=== PATIENT | female | born 1990 | race Caucasian/White ===

== ENCOUNTER 2021-02-25 14:11 | Emergency (ER) | payer OTHER, SELFPAY ==
[2021-02-25 14:23] VITALS: BP 141/80; PULSE 82; RESP 16; TEMP 36.8; O2SAT 99
--- NOTE | 2021-02-25 14:43 | DI.CT.S_ITS ---
PROCEDURE: CT HEAD/BRAIN WO CON INDICATIONS: dizzy, alt sensation to left side, visual disturbances. TECHNIQUE: Noncontrast 4.5 mm thick angled axial sections acquired from the foramen magnum to the vertex, with coronal and sagittal reformats. For radiation dose reduction, the following was used: automated exposure control, adjustment of mA and/or kV according to patient size. COMPARISON: None. FINDINGS: Image quality: Excellent. CSF spaces: Basal cisterns are patent. No extra-axial fluid collections. Ventricles are normal in size and shape. Brain: No midline shift. No intracranial masses or hemorrhage. Mann-white matter interface is normal. Skull and face: Calvarium and visualized facial bones are intact, without suspicious lesions. Sinuses: Visualized sinuses and mastoids are clear. IMPRESSION: Normal for age, source of current symptoms is not seen. Dictated by: Emigdio Reina M.D. on 02/25/2021 at 15:05 Approved by: Emigdio Reina M.D. on 02/25/2021 at 15:06
[2021-02-25 15:13] LABS: Add Manual Diff / Slide Review NO; Basophils Absolute Auto 0 /uL (0-100); Basophils Percent Auto 0.5 % (0-2); Eosinophils Absolute Auto 100 /uL (0-450); Eosinophils Percent Auto 2.4 % (2-4); Hematocrit 33.8 % (36-46); Hemoglobin 11.2 g/dL (12.0-16.0); Lymphocytes Absolute Auto 1600 /uL (1100-4500); Lymphocytes Percent Auto 30.7 % (25-40); Mean Corpuscular HGB Conc 33.2 % (30-36); Mean Corpuscular Volume 78.1 fL (80-100); Monocytes Absolute Auto 400 /uL (0-900); Monocytes Percent Auto 7.1 % (3-14); Neutrophils Absolute Auto 3000 /uL (1500-7000); Neutrophils Percent Auto 59.3 % (50-75); Platelet Count 351 X10^3/uL (150-400); Red Blood Cell Count 4.33 X10^6/uL (4.0-5.2); Red Cell Distribution Width 19.5 % (11.6-14.8); White Blood Cell Count 5.1 X10^3/uL (4.5-11.0)
[2021-02-25 15:18] LABS: INR 1.1 (0.9-1.3); Prothrombin Time 11.9 SECONDS (10.1-12.7)
[2021-02-25 15:21] LABS: PTT Partial Thromboplastin Tim 34 SECONDS (26.4-36.2)
[2021-02-25 15:23] LABS: Alanine Aminotransferase 28 IU/L (<35); Albumin 4.5 g/dL (3.5-5.0); Albumin Globulin Ratio 1.8 (1.0-2.8); Alkaline Phosphatase 51 U/L (38-126); Aspartate Aminotransferase 28 IU/L (14-36); BUN Creatinine Ratio 20.8 (6-22); Bilirubin Total 0.1 mg/dL (0.2-1.3); Blood Urea Nitrogen 15 mg/dL (7-17); Calcium 9.2 mg/dL (8.4-10.2); Carbon Dioxide 26 mmol/L (22-32); Chloride 105 mmol/L (98-107); Estimated Glomerular Filt Rate > 60.0 mL/min (>60); Globulin 2.5 g/dL (1.7-4.1); Glucose 96 mg/dL (70-100); HEMOLYSIS < 15 (0-50)
--- NOTE | 2021-02-25 15:34 | DI.MRI.S_ITS ---
PROCEDURE: MR HEAD/BRAIN WO/W CON INDICATIONS: lower ext numbness. TECHNIQUE: Noncontrast sagittal and axial FLAIR, axial and coronal T2 fast spin echo, axial VIBE, axial gradient echo, axial diffusion and ADC through the brain. After the administration of contrast, axial and coronal VIBE with fat saturation through the brain. COMPARISON: None. FINDINGS: Image quality: Excellent. CSF spaces: Normal ventricular caliber and position. The basilar cisterns are patent. No abnormal extra-axial fluid collection. Brain: There is no brain parenchymal FLAIR signal abnormality. No abnormal intracranial enhancement or susceptibility. There is no acute intracranial hemorrhage demonstrated by MR. No findings of mass effect or midline shift. There is no restricted diffusion to indicate recent ischemia. The major intracranial vascular flow-related signal voids are maintained. Midline structures are normal in configuration. Skull and face: Calvarial marrow signal is normal. Orbits appear normal. Sinuses: Sinuses and mastoids are clear. IMPRESSION: Normal MRI of the brain with and without IV contrast. No findings of demyelinating disorder or intracranial mass. Approved by: Roldan Malave M.D. on 02/25/2021 at 16:59 PATIENT NAME: HEATH REINA : 1990 EXAM DATE: 02/25/2021 15:38 ORD. : MELANIA RICKS D.O. CC: MODALITY: MR PATIENT TYPE: ER CONTRAST MEDIA: [facility]CC [place] STATION ID: [id number] FLUORO TIME: Diagnostic Imaging [address] [place] [address] PHONE: [phone] PATIENT NAME: HEATH REINA : 1990 EXAM DATE: 02/25/2021 15:38 ORD. : MELANIA RICKS D.O. CC: MODALITY: MR PATIENT TYPE: ER CONTRAST MEDIA: [facility] [place] STATION ID: [id number] FLUORO TIME:
[2021-02-25 15:41] LABS: Lipase 117 U/L (23-300); Potassium 3.7 mmol/L (3.4-5.1); Sodium 140 mmol/L (137-145)
--- NOTE | 2021-02-25 15:44 | ED_ITS ---
HPI - Neuro Symptoms/Deficit General Chief Complaint: Neuro Symptoms/Deficit Stated Complaint: Dizziness, Tingling/Numbness on Left Leg and Shoul Time Seen by Provider: 02/25/21 15:00 Source: patient Mode of arrival: Wheelchair Limitations: no limitations History of Present Illness HPI Narrative: Female nonsmoker with noncontributory medical history presents with various evolving neurologic symptoms over the past few weeks. She delivered stillborn child in November. Patient has had numbness and tingling on portions of her left shoulder and arm, left hip, left leg as well as dizziness and occasional vision change. She denies any pain nor any trauma. She has no chest pain or shortness of breath. She denies any fever or shaking chills. She is otherwise well and free of complaint. She was initially seen at the walk-in clinic and brought here for the symptoms which have been evolving over the past week. Onset (ago): day(s) Location: left arm and left leg History of same: Yes Severity: moderate Quality: tingling Relieving factors: none Exacerbating factors: none Context: gradual onset On Anticoagulants: No Associated symptoms: vertigo Treatments Prior to Arrival: none Related Data Allergies Allergy/AdvReac Type Severity Reaction Status Date / Time doxycycline Allergy Unknown Verified 02/25/21 14:29 Sulfa (Sulfonamide Allergy Unknown Verified 02/25/21 14:29 Antibiotics) Review of Systems Constitutional Constitutional: Denies chills, Denies fatigue, Denies fever(s), Denies frequent falls, Denies lethargy and Denies weakness Eyes Eyes: Denies change in vision, Denies eye discharge, Denies irritation and Denies loss of vision ENT Ears, Nose, Mouth, and Throat: Denies change in voice, Reports dizziness, Denies neck pain, Denies sore throat and Denies throat swelling Cardiovascular Cardiovascular: Denies chest pain, Denies irregular heart rhythm, Denies lightheadedness, Denies palpitations, Denies dyspnea, Denies dyspnea on exertion and Denies orthopnea Respiratory Respiratory: Denies cough, Denies dyspnea, Denies dyspnea on exertion and Denies wheezing Gastrointestinal Gastrointestinal: Denies abdominal pain, Denies change in bowel habits, Denies diarrhea, Denies nausea and Denies vomiting Musculoskeletal Musculoskeletal: Denies neck pain and Reports numbness Integumentary/Breasts Skin/Breast: Denies pruritus, Denies erythema, Denies rash and Denies wounds Neurologic Neurologic: Denies behavioral changes, Denies confusion, Reports dizziness, Denies frequent falls, Denies loss of vision, Reports numbness and Denies weakness Psychiatric Psychiatric: Denies anxiety, Denies behavioral changes, Denies confusion, Denies depression, Denies homicidal ideation and Denies suicidal ideation Endocrine Endocrine: Denies fatigue, Denies flushing and Denies palpitations Hematologic/Lymphatic Hematologic/Lymphatic: Denies easy bruising On Anticoagulants: No Allergic/Immunologic Allergic/Immunologic: Denies urticaria, Denies throat swelling and Denies wheezing Patient History Social History Smoking Status: Never smoker Smoking Status: Never smoker alcohol intake frequency: 0-2 drinks per day Substance Use Type: does not use Exam Narrative Exam Narrative: GENERAL: [31] year old patient appears stated age. Well- nourished, well-developed patient, in mild distress. HEAD: Atraumatic. Normocephalic. EYES: Pupils equal round and reactive. Extraocular motions intact. No scleral icterus. No injection or drainage. ENT: Nose without bleeding, purulent drainage. Throat without erythema, tonsillar hypertrophy or exudate. Airway patent. NECK: Trachea midline. Non tender CARDIOVASCULAR: Regular rate and rhythm without murmurs, gallops, or rubs. RESPIRATORY: Clear to auscultation. Breath sounds equal bilaterally. No wheezes, rales, or rhonchi. GASTROINTESTINAL: Abdomen soft, non-tender, nondistended. EXTREMITIES: No edema or joint tenderness. BACK: Nontender without deformity or crepitance. No flank tenderness. NEURO: AOx3. SKIN: No rash or erythema of visible areas NIH Stroke Scale 1a. LOC: Patient is alert and keenly responsive (0) 1b. LOC Questions: Patient answers both LOC questions accurately (0) 1c. LOC Commands: Patient performs both tasks correctly (0) 2. Best Gaze: Normal (0) 3. Visual: No visual loss (0) 4. Facial palsy: Normal symmetrical movements (0) 5. Motor arm: No drift (0) 6. Motor leg: No drift (0) 7. Limb ataxia: Absent (0) 8. Sensory: Normal (1) 9. Best language: No aphasia; normal (0) 10. Dysarthria: Normal (0) 11. Extinction and inattention: No abnormality (0) NIHSS: 1 Initial Vital Signs Initial Vital Signs: Vital Signs Temperature 98.2 F 02/25/21 14:23 Pulse Rate 82 02/25/21 14:23 Respiratory Rate 16 02/25/21 14:23 Blood Pressure 141/80 H 02/25/21 14:23 Pulse Oximetry 99 02/25/21 14:23 Course Orders Ordered: ED Orders 02/25/21 14:43 CT head/brain wo con Stat EKG-12 Lead Stat 02/25/21 14:55 Complete Blood Count AUTO DIFF Stat Comprehensive Metabolic Panel Stat Lipase Stat Magnesium Stat Partial Thromboplastin Time Stat Prothrombin Time INR Stat TSH w/ Reflex to FT4 Stat 02/25/21 15:34 MR head/brain wo/w con Stat 02/25/21 16:13 MR cervical spine wo/w con Stat Consultations Consultation #1: Upon receipt of very reassuring imaging I did consult with tele stroke to discuss other possible an alternative diagnoses. After lengthy discussion regarding the patient's history and physical as well as multiple imaging the only suggestion or request was the potential of a CT or MR with venous phase as the gold standard to rule out cavernous sinus thrombosis. Otherwise evaluation is thorough and patient may be discharged with follow-up Consultation #2: After the above conversation I contacted Radiology on-call to review the imaging who states with certainty that there is very sufficient imaging to rule out cavernous venous thrombosis. Vital Signs Vital signs: Vital Signs - 8 hr 02/25/21 14:23 Temperature 98.2 F Pulse Rate 82 Respiratory Rate 16 Blood Pressure 141/80 H Pulse Oximetry 99 MDM - Neuro Symptoms/Deficit Lab Data Result diagrams: 02/25/21 14:55 02/25/21 14:55 Labs: Lab Results 02/25/21 02/25/21 02/25/21 Range/Units 14:55 14:55 14:55 WBC 5.1 (4.5-11.0) X10^3/uL RBC 4.33 (4.0-5.2) X10^6/uL Hgb 11.2 L (12.0-16.0) g/dL Hct 33.8 L (36-46) % MCV 78.1 L (80-100) fL MCH 26.0 (26-34) PG MCHC 33.2 (30-36) % RDW 19.5 H (11.6-14.8) % Plt Count 351 (150-400) X10^3/uL Neut % (Auto) 59.3 (50-75) % Lymph % (Auto) 30.7 (25-40) % [place] % (Auto) 7.1 (3-14) % Eos % (Auto) 2.4 (2-4) % Baso % (Auto) 0.5 (0-2) % Neut # (Auto) 3000 (7786-1735) /uL Lymph # (Auto) 1600 (4618-6263) /uL [place] # (Auto) 400 (0-900) /uL Eos # (Auto) 100 (0-450) /uL Baso # (Auto) 0 (0-100) /uL PT 11.9 (10.1-12.7) SECONDS INR 1.1 (0.9-1.3) APTT 34 (26.4-36.2) SECONDS Sodium 140 (137-145) mmol/L Potassium 3.7 (3.4-5.1) mmol/L Chloride 105 (98-107) mmol/L Carbon Dioxide 26 (22-32) mmol/L BUN 15 (7-17) mg/dL Creatinine 0.72 (0.52-1.04) mg/dL Estimated GFR > 60.0 (>60) mL/min BUN/Creatinine Ratio 20.8 (6-22) Glucose 96 (70-100) mg/dL Calcium 9.2 (8.4-10.2) mg/dL Magnesium 2.0 (1.6-2.3) mg/dL Total Bilirubin 0.1 L (0.2-1.3) mg/dL AST 28 (14-36) IU/L ALT 28 (<35) IU/L Alkaline Phosphatase 51 (38-126) U/L Total Protein 7.0 (6.3-8.2) g/dL Albumin 4.5 (3.5-5.0) g/dL Globulin 2.5 (1.7-4.1) g/dL Albumin/Globulin Ratio 1.8 (1.0-2.8) Lipase 117 (23-300) U/L TSH (0.47-4.68) uIU/mL 05/28/21 Range/Units 14:55 WBC (4.5-11.0) X10^3/uL RBC (4.0-5.2) X10^6/uL Hgb (12.0-16.0) g/dL Hct (36-46) % MCV (80-100) fL MCH (26-34) PG MCHC (30-36) % RDW (11.6-14.8) % Plt Count (150-400) X10^3/uL Neut % (Auto) (50-75) % Lymph % (Auto) (25-40) % [place] % (Auto) (3-14) % Eos % (Auto) (2-4) % Baso % (Auto) (0-2) % Neut # (Auto) (6094-5887) /uL Lymph # (Auto) (8295-7306) /uL [place] # (Auto) (0-900) /uL Eos # (Auto) (0-450) /uL Baso # (Auto) (0-100) /uL PT (10.1-12.7) SECONDS INR (0.9-1.3) APTT (26.4-36.2) SECONDS Sodium (137-145) mmol/L Potassium (3.4-5.1) mmol/L Chloride (98-107) mmol/L Carbon Dioxide (22-32) mmol/L BUN (7-17) mg/dL Creatinine (0.52-1.04) mg/dL Estimated GFR (>60) mL/min BUN/Creatinine Ratio (6-22) Glucose (70-100) mg/dL Calcium (8.4-10.2) mg/dL Magnesium (1.6-2.3) mg/dL Total Bilirubin (0.2-1.3) mg/dL AST (14-36) IU/L ALT (<35) IU/L Alkaline Phosphatase (38-126) U/L Total Protein (6.3-8.2) g/dL Albumin (3.5-5.0) g/dL Globulin (1.7-4.1) g/dL Albumin/Globulin Ratio (1.0-2.8) Lipase (23-300) U/L TSH 2.24 (0.47-4.68) uIU/mL Imaging Data CT scan - head: Radiologist's Impression: [address] [place] [id number] Scan ReportSigned Patient: Clare Costello LMR#: [id number]: 1990Acct:[id number]/Sex: 31 / FDate of Service: 02/25/21Loc: EDAccession Number: [id number] Procedure: CT head/brain wo con Ordering Provider: Serenity Hernandez D.O. PROCEDURE: CT HEAD/BRAIN WO CON INDICATIONS: dizzy, alt sensation to left side, visual disturbances. TECHNIQUE: Noncontrast 4.5 mm thick angled axial sections acquired from the foramen magnum to the vertex, with coronal and sagittal reformats. For radiation dose reduction, the following was used: automated exposure control, adjustment of mA and/or kV according to patient size. COMPARISON: None. FINDINGS: Image quality: Excellent. CSF spaces: Basal cisterns are patent. No extra-axial fluid collections. Ventricles are normal in size and shape. Brain: No midline shift. No intracranial masses or hemorrhage. Mann-white matter interface is normal. Skull and face: Calvarium and visualized facial bones are intact, without suspicious lesions. Sinuses: Visualized sinuses and mastoids are clear. IMPRESSION: Normal for age, source of current symptoms is not seen. Dictated by: Emigdio Reina M.D. on 02/25/2021 at 15:05 Approved by: Emigdio Reina M.D. on 02/25/2021 at 15:06 MRI Head/Cervical Spine: Radiologist's Impression: [address] [id number] Resonance ReportSigned Patient: Clare Costello LMR#: [id number]: 1990Acct:[id number]/Sex: 31 / FDate of Service: 02/25/21Loc: EDAccession Number: [id number] Procedure: MR head/brain wo/w con Ordering Provider: Slade Ovalles D.O. PROCEDURE: MR HEAD/BRAIN WO/W CON INDICATIONS: lower ext numbness. TECHNIQUE: Noncontrast sagittal and axial FLAIR, axial and coronal T2 fast spin echo, axial VIBE, axial gradient echo, axial diffusion and ADC through the brain. After the administration of contrast, axial and coronal VIBE with fat saturation through the brain. COMPARISON: None. FINDINGS: Image quality: Excellent. CSF spaces: Normal ventricular caliber and position. The basilar cisterns are patent. No abnormal extra-axial fluid collection. Brain: There is no brain parenchymal FLAIR signal abnormality. No abnormal intracranial enhancement or susceptibility. There is no acute intracranial hemorrhage demonstrated by MR. No findings of mass effect or midline shift. There is no restricted diffusion to indicate recent ischemia. The major intracranial vascular flow-related signal voids are maintained. Midline structures are normal in configuration. Skull and face: Calvarial marrow signal is normal. Orbits appear normal. Sinuses: Sinuses and mastoids are clear. IMPRESSION: Normal MRI of the brain with and without IV contrast. No findings of demyelinating disorder or intracranial mass. Approved by: Roldan Malave M.D. on 02/25/2021 at 16:[address] [place] [id number] Resonance ReportSigned Patient: Clare Costello LMR#: [id number]: 1990Acct:[id number]/Sex: 31 / FDate of Service: 02/25/21Loc: EDAccession Number: [id number] Procedure: MR cervical spine wo/w con Ordering Provider: Slade Ovalles D.O. PROCEDURE: MR CERVICAL SPINE WO/W CON INDICATIONS: numbness, tingling TECHNIQUE: Noncontrast sagittal T1 spin echo and T2 fast spin echo, sagittal STIR, sagittal PD fast spin echo, foraminal oblique sagittal T2 fast spin echo, axial gradient echo or T2 fast spin echo through the cervical spine. After the administration of contrast, sagittal and axial T1 spin echo with fat saturation through the cervical spine. COMPARISON: None. FINDINGS: Image quality: Degraded by patient motion artifact. Alignment and curvature: There is normal bony alignment. Marrow: Marrow demonstrates normal overall signal. Spinal cord: Visualized spinal cord is normal in size, without white matter lesions. No suspicious intramedullary enhancement. No cerebellar tonsillar herniation. Paraspinous soft tissues: No paravertebral masses or suspicious enhancement. C2-C3: Normal appearance. C3-C4: Normal appearance. C4-C5: Normal appearance. C5-C6: Normal appearance. C6-C7: Normal appearance. C7-T1: Normal appearance. IMPRESSION: 1. Image quality degraded by patient motion artifact. 2. No definite abnormal spinal cord signal. Please note subtle signal abnormalities in the spinal cord are not completely excluded due to artifact related to patient motion. 3. No suspicious postcontrast enhancement. 4. No central stenosis. 5. No neural foraminal narrowing. 6. No neural compression. Dictated by: Gina Chong MD, PhD on 02/25/2021 at 16:58 Approved by: Gina Chong MD, PhD on 02/25/2021 at 17:02 [facility] Narrative Medical decision making narrative: Multiple etiologies for patient's symptoms considered including: [Stroke versus mass versus cavernous sinus thrombosis versus cervical radiculopathy versus other] Patient remained stable throughout the duration of visit develops no new symptoms. I had extensive discussion with her regarding the very reassuring findings and multiple diagnoses were able to successfully rule out. Findings and discharge diagnosis discussed with patient/family followed by verbalization of understanding Return precautions discussed with patient/family whom verbalize understanding. Discharge Plan Departure Patient Disposition: Home Clinical Impression: Dizziness, Numbness of left foot Instructions: DI for Dizziness-Nonvertigo Activity Restrictions/Additional Instructions: *You have been diagnosed with [dizziness along with numbness of left arm, leg and foot. As we discussed your imaging is very reassuring and was able to rule out stroke, tumor, multiple sclerosis, cavernous sinus thrombosis and other ominous findings.] *What to do: *Please continue to take your regular medications as directed. [ ] New medication prescriptions sent to your pharmacy: [ ] [ ] New medication written as a paper prescription [ x] No new medications given *Please follow up with your primary care provider in 2-3 days, call for an appointment. Let them know you were seen in the Emergency Department and that we ask that you be seen in follow up. We will electronically transmit a record of today's note if your PCP is in our system *If you do not have a primary care provider please contact the [facility] Resource line at [phone]. They will ask some questions about your medical history and help get you set up with a doctor in the community. *Return to Emergency Department if you should have any new, worsening or concerning symptoms, such as [fever greater than 101 F, shaking chills, worsening pain, persistent vomiting or other bothersome symptoms] Referrals: Miscellaneous,MD Andi [Primary Care Provider] -
--- NOTE | 2021-02-25 16:13 | DI.MRI.S_ITS ---
PROCEDURE: MR CERVICAL SPINE WO/W CON INDICATIONS: numbness, tingling TECHNIQUE: Noncontrast sagittal T1 spin echo and T2 fast spin echo, sagittal STIR, sagittal PD fast spin echo, foraminal oblique sagittal T2 fast spin echo, axial gradient echo or T2 fast spin echo through the cervical spine. After the administration of contrast, sagittal and axial T1 spin echo with fat saturation through the cervical spine. COMPARISON: None. FINDINGS: Image quality: Degraded by patient motion artifact. Alignment and curvature: There is normal bony alignment. Marrow: Marrow demonstrates normal overall signal. Spinal cord: Visualized spinal cord is normal in size, without white matter lesions. No suspicious intramedullary enhancement. No cerebellar tonsillar herniation. Paraspinous soft tissues: No paravertebral masses or suspicious enhancement. C2-C3: Normal appearance. C3-C4: Normal appearance. C4-C5: Normal appearance. C5-C6: Normal appearance. C6-C7: Normal appearance. C7-T1: Normal appearance. IMPRESSION: 1. Image quality degraded by patient motion artifact. 2. No definite abnormal spinal cord signal. Please note subtle signal abnormalities in the spinal cord are not completely excluded due to artifact related to patient motion. 3. No suspicious postcontrast enhancement. 4. No central stenosis. 5. No neural foraminal narrowing. 6. No neural compression. Dictated by: Gina Chong MD, PhD on 02/25/2021 at 16:58 Approved by: Gina Chong MD, PhD on 02/25/2021 at 17:02
[2021-02-25 16:19] LABS: TSH w/ Reflex to FT4 2.24 uIU/mL (0.47-4.68)
--- NOTE | 2021-02-25 17:43 | PC.NURSE ---
see triage note: gradual onset of patchy numbness on left side, worsening over one week w/ dizziness as well as visual disturbances. Pt is pink/warm/dry. denies fever, chills, chest pain, shortness of breath.
[2021-02-25 17:59] VITALS: BP 122/72; PULSE 70; RESP 17; O2SAT 99
== END 2021-02-25 18:04 | disposition home or self-care (01) ==
PROVIDERS: Emergency Medicine; Emergency Provider Emergency Medicine
DX: R42 Dizziness and giddiness (principal); R20.0 Anesthesia of skin
CPT/HCPCS: 36415; 70450; 70553; 72156; 80053; 83690; 83735; 84443; 85025; 85610; 85730; 93005; 99284; A9579

== ENCOUNTER → 2021-03-11 11:01 | Outpatient (CLI) | payer OTHER, SELFPAY ==
[2021-03-11 12:18] LABS: Add Manual Diff / Slide Review NO; Basophils Absolute Auto 0 /uL (0-100); Basophils Percent Auto 0.5 % (0-2); Eosinophils Absolute Auto 100 /uL (0-450); Eosinophils Percent Auto 2.6 % (2-4); Hematocrit 36.2 % (36-46); Hemoglobin 12.1 g/dL (12.0-16.0); Lymphocytes Absolute Auto 1700 /uL (1100-4500); Lymphocytes Percent Auto 40.8 % (25-40); Mean Corpuscular HGB Conc 33.4 % (30-36); Mean Corpuscular Hemoglobin 26.1 PG (26-34); Monocytes Absolute Auto 300 /uL (0-900); Monocytes Percent Auto 6.6 % (3-14); Neutrophils Absolute Auto 2100 /uL (1500-7000); Neutrophils Percent Auto 49.5 % (50-75); Platelet Count 334 X10^3/uL (150-400); Red Blood Cell Count 4.63 X10^6/uL (4.0-5.2); Red Cell Distribution Width 17.2 % (11.6-14.8); White Blood Cell Count 4.3 X10^3/uL (4.5-11.0)
[2021-03-11 12:33] LABS: Alanine Aminotransferase 25 IU/L (<35); Albumin 4.4 g/dL (3.5-5.0); Albumin Globulin Ratio 1.8 (1.0-2.8); Alkaline Phosphatase 56 U/L (38-126); Aspartate Aminotransferase 26 IU/L (14-36); BUN Creatinine Ratio 22.7 (6-22); Bilirubin Total 0.2 mg/dL (0.2-1.3); Blood Urea Nitrogen 17 mg/dL (7-17); Calcium 9.8 mg/dL (8.4-10.2); Carbon Dioxide 27 mmol/L (22-32); Chloride 105 mmol/L (98-107); Estimated Glomerular Filt Rate > 60.0 mL/min (>60); Globulin 2.5 g/dL (1.7-4.1); Glucose 89 mg/dL (70-100); HEMOLYSIS < 15 (0-50); Potassium 4.5 mmol/L (3.4-5.1); Sodium 140 mmol/L (137-145); Total Protein 6.9 g/dL (6.3-8.2)
[2021-03-11 12:40] LABS: Total Iron Binding Capacity 476 ug/dL (265-497)
[2021-03-11 12:49] LABS: Free T4, Direct Thyroxine 0.72 ng/dL (0.78-2.19)
[2021-03-11 13:07] LABS: Ferritin 6 ng/mL (6-137)
[2021-03-11 13:37] LABS: Folate > 20.0 ng/mL (2.76-20.0); Vitamin B12 598 pg/mL (239-931)
== END ==
PROVIDERS: PCP Family Medicine; Referring Provider Registered Nurse; Visit Provider Registered Nurse
DX: D64.9 Anemia, unspecified (principal); R20.2 Paresthesia of skin; R53.83 Other fatigue
CPT/HCPCS: 36415; 80053; 82607; 82728; 82746; 83550; 84439; 84443; 85025

== ENCOUNTER → 2021-05-10 10:26 | Outpatient (CLI) | payer OTHER, SELFPAY ==
[2021-05-10 13:10] LABS: Free T4, Direct Thyroxine 0.89 ng/dL (0.78-2.19)
[2021-05-10 13:24] LABS: TSH w/ Reflex to FT4 0.82 uIU/mL (0.47-4.68)
== END ==
PROVIDERS: PCP Family Medicine; Referring Provider Family Medicine; Visit Provider Family Medicine
DX: D64.9 Anemia, unspecified (principal); R53.83 Other fatigue; R20.0 Anesthesia of skin; R79.89 Other specified abnormal findings of blood chemistry
CPT/HCPCS: 36415; 84439; 84443

== ENCOUNTER → 2021-07-06 09:12 | Outpatient (CLI) | payer OTHER, SELFPAY ==
[2021-07-06 10:14] LABS: Add Manual Diff / Slide Review NO; Basophils Absolute Auto 0 /uL (0-100); Basophils Percent Auto 0.6 % (0-2); Eosinophils Absolute Auto 100 /uL (0-450); Eosinophils Percent Auto 2.5 % (2-4); Hematocrit 35.1 % (36-46); Hemoglobin 11.4 g/dL (12.0-16.0); Lymphocytes Absolute Auto 1500 /uL (1100-4500); Lymphocytes Percent Auto 40.6 % (25-40); Mean Corpuscular HGB Conc 32.3 % (30-36); Mean Corpuscular Hemoglobin 26.7 PG (26-34); Mean Corpuscular Volume 82.6 fL (80-100); Monocytes Absolute Auto 200 /uL (0-900); Monocytes Percent Auto 6.3 % (3-14); Neutrophils Absolute Auto 1800 /uL (1500-7000); Platelet Count 354 X10^3/uL (150-400); Red Blood Cell Count 4.25 X10^6/uL (4.0-5.2); Red Cell Distribution Width 15.5 % (11.6-14.8); White Blood Cell Count 3.6 X10^3/uL (4.5-11.0)
[2021-07-06 10:27] LABS: HEMOLYSIS < 15 (0-50); Iron 24 ug/dL (37-170)
[2021-07-06 10:39] LABS: Percent Iron Saturation 5 % (15-50); Total Iron Binding Capacity 497 ug/dL (265-497); Transferrin 421 mg/dL (206-381)
[2021-07-06 10:45] LABS: Free T4, Direct Thyroxine 1.04 ng/dL (0.78-2.19)
[2021-07-06 10:59] LABS: Thyroid Stimulating Hormone 0.734 uIU/mL (0.47-4.68)
[2021-07-06 11:06] LABS: Ferritin 6 ng/mL (6-137)
== END ==
PROVIDERS: PCP Family Medicine; Referring Provider Obstetrics & Gynecology Maternal & Fetal Medicine; Visit Provider Obstetrics & Gynecology Maternal & Fetal Medicine
DX: N96 Recurrent pregnancy loss (principal); D64.9 Anemia, unspecified; R53.83 Other fatigue
CPT/HCPCS: 36415; 82728; 83540; 83550; 84439; 84443; 85025; 85384; 85390; 85610; 85613; 85670; 85730; 86146; 86147

== ENCOUNTER → 2021-10-20 09:31 | Outpatient (CLI) | payer OTHER, SELFPAY ==
--- NOTE | 2021-10-20 | DI.MRI.S_ITS ---
PROCEDURE: MR CERVICAL SPINE WO/W CON INDICATIONS: demyelinating disease TECHNIQUE: Noncontrast sagittal T1 spin echo and T2 fast spin echo, sagittal STIR, sagittal PD fast spin echo, foraminal oblique sagittal T2 fast spin echo, axial gradient echo or T2 fast spin echo through the cervical spine. After the administration of contrast, sagittal and axial T1 spin echo with fat saturation through the cervical spine. COMPARISON: [facility], MR, MR CERVICAL SPINE WO/W CON, 02/25/2021, 15:38. FINDINGS: Image quality: Motion is present within the exam particularly the proton density sequence. Alignment and curvature: There is normal bony alignment. Marrow: Marrow demonstrates normal overall signal. Spinal cord: Visualized spinal cord is normal in size. There is no definitively identified white matter lesions. However, motion degrades image quality within these regions. No suspicious intramedullary enhancement. No cerebellar tonsillar herniation. Paraspinous soft tissues: No paravertebral masses or suspicious enhancement. C2-T1: No disc bulge, spinal stenosis or foraminal narrowing. IMPRESSION: No definitively identified intramedullary white matter lesions. However, motion artifact is present degrading image quality and subtle abnormalities may not be visualized. No postcontrast enhancement abnormality. No disc bulge, spinal stenosis or foraminal narrowing. Dictated by: Kaity Irving M.D. on 10/20/2021 at 14:20 Approved by: Kaity Irving M.D. on 10/20/2021 at 15:06
== END ==
PROVIDERS: PCP Family Medicine; Referring Provider Psychiatry & Neurology Neurology; Visit Provider Psychiatry & Neurology Neurology
DX: G37.9 Demyelinating disease of central nervous system, unspecified
CPT/HCPCS: 72156; A9579

== ENCOUNTER → 2022-02-17 10:28 | Outpatient (CLI) | payer OTHER, SELFPAY ==
[2022-02-17 11:25] LABS: Add Manual Diff / Slide Review NO; Basophils Absolute Auto 0 /uL (0-100); Basophils Percent Auto 0.4 % (0-2); Eosinophils Absolute Auto 100 /uL (0-450); Eosinophils Percent Auto 1.9 % (2-4); Hematocrit 36.2 % (36-46); Hemoglobin 12.5 g/dL (12.0-16.0); Lymphocytes Absolute Auto 1700 /uL (1100-4500); Lymphocytes Percent Auto 32.2 % (25-40); Mean Corpuscular HGB Conc 34.6 % (30-36); Monocytes Absolute Auto 200 /uL (0-900); Monocytes Percent Auto 4.6 % (3-14); Neutrophils Absolute Auto 3200 /uL (1500-7000); Neutrophils Percent Auto 60.9 % (50-75); Platelet Count 305 X10^3/uL (150-400); Red Blood Cell Count 4.31 X10^6/uL (4.0-5.2); Red Cell Distribution Width 13.7 % (11.6-14.8); White Blood Cell Count 5.2 X10^3/uL (4.5-11.0)
[2022-02-17 11:38] LABS: Erythrocyte Sedimentation Rate 1 MM/HR (0-20)
[2022-02-17 11:43] LABS: Alanine Aminotransferase 16 IU/L (<35); Albumin 4.5 g/dL (3.5-5.0); Albumin Globulin Ratio 1.8 (1.0-2.8); Alkaline Phosphatase 52 U/L (38-126); Aspartate Aminotransferase 22 IU/L (14-36); BUN Creatinine Ratio 22.1 (6-22); Bilirubin Total 0.3 mg/dL (0.2-1.3); Blood Urea Nitrogen 17 mg/dL (7-17); C-Reactive Protein Quant 0.6 mg/dL (<1.0); Carbon Dioxide 29 mmol/L (22-32); Chloride 104 mmol/L (98-107); Estimated Glomerular Filt Rate > 60 mL/min (>60); Globulin 2.5 g/dL (1.7-4.1); Glucose 107 mg/dL (70-100); HEMOLYSIS < 15 (0-50); Potassium 3.8 mmol/L (3.4-5.1); Sodium 139 mmol/L (137-145)
[2022-02-17 12:13] LABS: Ferritin 11 ng/mL (6-137)
[2022-02-17 12:25] LABS: HEMOLYSIS < 15 (0-50); Iron 81 ug/dL (37-170)
[2022-02-17 12:38] LABS: Percent Iron Saturation 17 % (15-50); Total Iron Binding Capacity 466 ug/dL (265-497); Transferrin 416 mg/dL (206-381)
[2022-02-20 15:47] LABS: Interpretation Negative (Negative)
== END ==
PROVIDERS: PCP Family Medicine; Referring Provider Family Medicine; Visit Provider Family Medicine
DX: D64.9 Anemia, unspecified (principal); E03.9 Hypothyroidism, unspecified; N92.0 Excessive and frequent menstruation with regular cycle; R10.12 Left upper quadrant pain; R51.9 Headache, unspecified; R53.83 Other fatigue
CPT/HCPCS: 36415; 80053; 82728; 83013; 83540; 83550; 85025; 85651; 86140

== ENCOUNTER → 2022-04-15 08:02 | Outpatient (CLI) | payer OTHER, SELFPAY ==
--- NOTE | 2022-04-15 08:04 | DI.MRI.S_ITS ---
PROCEDURE: MR HEAD/BRAIN WO/W CON INDICATIONS: DYSESTHESIA TECHNIQUE: Noncontrast axial T1 spin echo, axial T2 fast spin echo, sagittal and axial FLAIR, coronal T2 fast spin echo, axial gradient echo, axial diffusion and ADC through the brain. After the administration of contrast, axial and coronal and sagittal 3D VIBE or T1 spin echo with fat saturation through the brain. COMPARISON: [facility], MR, MR HEAD/BRAIN WO/W CON, 02/25/2021, 15:38. FINDINGS: Image quality: Excellent. CSF Spaces: Basal cisterns are patent. No extra-axial fluid collections. Ventricles are normal in size and shape. Brain: No midline shift. No intracranial bleeds or masses. No abnormal intracranial enhancement. The brainstem appears normal. Diffusion-weighted images demonstrate no acute infarct. Normal intravascular flow voids are present. Skull and face: Calvarial marrow is normal in signal. Orbits appear normal. Sinuses: Mild mucosal thickening noted in the left maxillary sinus IMPRESSION: Normal MRI of the brain Approved by: Bonilla Raines M.D. on 04/15/2022 at 9:56
== END ==
PROVIDERS: PCP Family Medicine; Referring Provider Psychiatry & Neurology Neurology; Visit Provider Psychiatry & Neurology Neurology
DX: R20.8 Other disturbances of skin sensation (principal); R20.2 Paresthesia of skin
CPT/HCPCS: 70553; A9579

== ENCOUNTER → 2022-12-11 16:38 | Outpatient (CLI) | payer OTHER, SELFPAY ==
[2022-12-11 18:39] LABS: TSH w/ Reflex to FT4 0.94 uIU/mL (0.47-4.68)
== END ==
PROVIDERS: PCP Family Medicine; Referring Provider Family Medicine; Visit Provider Family Medicine
DX: E03.9 Hypothyroidism, unspecified (principal)
CPT/HCPCS: 36415; 84443

== ENCOUNTER → 2023-01-30 16:31 | Outpatient (CLI) | payer OTHER, SELFPAY ==
[2023-01-30 18:00] LABS: HCG Quantitative /Beta subunit 32.7 mIU/mL
== END ==
PROVIDERS: PCP Family Medicine; Referring Provider Specialist; Visit Provider Specialist
DX: Z34.90 Encounter for supervision of normal pregnancy, unspecified, unspecified trimester (principal)
CPT/HCPCS: 36415; 84702

== ENCOUNTER → 2023-02-02 10:26 | Outpatient (CLI) | payer OTHER, SELFPAY ==
[2023-02-02 11:50] LABS: HCG Quantitative /Beta subunit 170.1 mIU/mL
== END ==
PROVIDERS: PCP Family Medicine; Referring Provider Specialist; Visit Provider Specialist
DX: Z34.90 Encounter for supervision of normal pregnancy, unspecified, unspecified trimester (principal)
CPT/HCPCS: 36415; 84702

== ENCOUNTER → 2023-02-07 08:56 | Outpatient (CLI) | payer OTHER, SELFPAY ==
[2023-02-07 10:14] LABS: HCG Quantitative /Beta subunit 1501.7 mIU/mL
[2023-02-07 10:21] LABS: TSH w/ Reflex to FT4 1.67 uIU/mL (0.47-4.68)
== END ==
PROVIDERS: PCP Family Medicine; Referring Provider Specialist; Visit Provider Specialist
DX: O26.20 Pregnancy care for patient with recurrent pregnancy loss, unspecified trimester; Z3A.00 Weeks of gestation of pregnancy not specified; E03.9 Hypothyroidism, unspecified
CPT/HCPCS: 36415; 84443; 84702

== ENCOUNTER → 2023-02-15 08:50 | Outpatient (CLI) | payer OTHER, SELFPAY ==
--- NOTE | 2023-02-15 08:51 | DI.US.S_ITS ---
PROCEDURE: US OB <= 14 WEEKS FETUS INDICATIONS: DATING AND VIABILITY OUTSIDE/PRIOR DATING DATA: Last menstrual period (LMP): 01/05/2023 LMP-based estimated date of delivery (GREGORIO): 10/12/2023 First dating scan (date and location): 02/15/2023 Estimated date of delivery (GREGORIO) from first dating scan: 10/09/2023 TECHNIQUE: Real-time scanning was performed of the fetus and maternal pelvic organs, with image documentation. Endovaginal scanning was also performed to better visualize the fetus and maternal ovaries. COMPARISON: None. FINDINGS: Single intrauterine gestational sac is seen with mean gestational sac size measures 1.5 cm. No pole is noted. Possible yolk sac is seen.. Estimated gestational age based on current study is 6 weeks, 2 days. Estimated gestational age based on last menstrual period is 5 weeks, 6 days. No cardiac activity is detected. Maternal organs: Ovaries are visualized and are within normal limits. IMPRESSION: 1. Possible single intrauterine gestational sac with yolk sac seen. No pole or cardiac activity is detected. Please correlate with serial beta hCG levels and follow-up ultrasound for evaluation of viability. We strive to produce accurate, complete, and clear reports of imaging services. To assist us in improving patient care, this report was composed using standard report templates and voice recognition software. Therefore, it may contain abnormal punctuation, insertions and/or omissions. Occasional wrong-word or sound-alike substitutions may occur. Though we review the report and make efforts to correct it, we do recommend that the report be read carefully in proper context to recognize any text inaccuracies. Dictated by: Kris Rothman M.D. on 02/15/2023 at 9:13 Approved by: Kris Rothman M.D. on 02/15/2023 at 9:15
[2023-02-15 14:27] LABS: HCG Quantitative /Beta subunit 40409 mIU/mL
== END ==
PROVIDERS: PCP Family Medicine; Referring Provider Specialist; Visit Provider Specialist
DX: O26.20 Pregnancy care for patient with recurrent pregnancy loss, unspecified trimester (principal); Z3A.01 Less than 8 weeks gestation of pregnancy
CPT/HCPCS: 36415; 76801; 76817; 84702; 93975

== ENCOUNTER → 2023-02-19 15:43 | Outpatient (CLI) | payer OTHER, SELFPAY ==
[2023-02-19 17:30] LABS: HCG Quantitative /Beta subunit 96461 mIU/mL
== END ==
PROVIDERS: PCP Family Medicine; Referring Provider Specialist; Visit Provider Specialist
DX: Z34.90 Encounter for supervision of normal pregnancy, unspecified, unspecified trimester (principal)
CPT/HCPCS: 36415; 84702

== ENCOUNTER → 2023-03-06 09:43 | Outpatient (CLI) | payer OTHER, SELFPAY ==
--- NOTE | 2023-03-06 09:44 | DI.US.S_ITS ---
PROCEDURE: US OB <= 14 WEEKS FETUS INDICATIONS: Confirmation of viability OUTSIDE/PRIOR DATING DATA: Last menstrual period (LMP): January 05, 2023. LMP-based estimated date of delivery (GREGORIO): October 12, 2023. First dating scan (date and location): February 15, 2023. Estimated date of delivery (GREGORIO) from first dating scan: October 09, 2023. TECHNIQUE: Real-time scanning was performed of the fetus and maternal pelvic organs, with image documentation. Endovaginal scanning was also performed to better visualize the fetus and maternal ovaries. COMPARISON: [facility], , OB <= 14 WEEKS FETUS, 02/20/2023, 10:48. FINDINGS: Embryo: Single living intrauterine gestation with estimated sonographic gestational age of approximately 8 weeks and 3 days based off crown-rump length measurement of approximately 1.94 cm. Yolk sac is visualized. No perigestational hemorrhage identified. Heart rate: 180 beats per minute. Maternal organs: Right ovary appears unremarkable. Left ovary is not visualized on today's study. IMPRESSION: Single living intrauterine gestation with estimated sonographic gestational age of approximately 8 weeks and 3 days based off crown-rump length measurement. Recommend routine second trimester anatomy screening survey. We strive to produce accurate, complete, and clear reports of imaging services. To assist us in improving patient care, this report was composed using standard report templates and voice recognition software. Therefore, it may contain abnormal punctuation, insertions and/or omissions. Occasional wrong-word or sound-alike substitutions may occur. Though we review the report and make efforts to correct it, we do recommend that the report be read carefully in proper context to recognize any text inaccuracies. Dictated by: Paras Javier M.D. on 03/06/2023 at 13:16 Approved by: Paras Javier M.D. on 03/06/2023 at 13:20
== END ==
PROVIDERS: PCP Family Medicine; Referring Provider Specialist; Visit Provider Specialist
DX: O26.21 Pregnancy care for patient with recurrent pregnancy loss, first trimester (principal); Z3A.08 8 weeks gestation of pregnancy
CPT/HCPCS: 76801